=== PATIENT | male | born 1965 | race Caucasian/White ===

== ENCOUNTER 2023-10-26 14:05 | Emergency (ER) | payer MEDICARE ==
[2023-10-26] MEDS ORDERED: diphenhydrAMINE 50 MG/ML 1 ML VIAL ONE (15:19)
[2023-10-26] MEDS ORDERED: DEXAMETHASONE SOD PHOSPHATE 10 MG/ML 1 ML VIAL ONE (15:19)
[2023-10-26] MEDS ORDERED: FAMOTIDINE 20 MG/2 ML VIAL ONE (15:19)
[2023-10-26] MEDS ORDERED: SODIUM CHLORIDE 0.9% 500 ML BAG ONE (15:25)
== END 2023-10-26 16:15 | disposition home or self-care (01) ==
LOC: EC 14:05
DX: T63.441A Toxic effect of venom of bees, accidental (unintentional), initial encounter (principal)
CPT/HCPCS: 96361; 96374; 96375; 99284